=== PATIENT | female | born 1990 | race Hispanic/Latino ===

== ENCOUNTER 2017-03-07 17:51 | Emergency (ER) | payer BC ==
[2017-03-07 17:56] VITALS: BP 134/88; PULSE 79; RESP 13; TEMP 97.8; O2SAT 99
--- NOTE | 2017-03-07 18:49 | ED PDOC ---
HPI: Wound Care - HPI Time Seen by Provider: 03/07/17 17:55 Chief Complaint (Nursing): Upper Extremity Problem/Injury Chief Complaint (Provider): Finger injury History Per: Patient History Of Present Illness: Marisol Rice, a 26 year old female, presents to the ED for injury to her hands. The patient states thats he was climbing a fence and she fell sustaining lacerations to her left thumb, left index finger and right 4th digit. Patient is unsure of tetanus status. Exam Limitations: no limitations Onset/Duration Of Symptoms: Days (x1) Current Symptoms Are (Timing): Still Present Past Medical History Reviewed: Historical Data, Nursing Documentation, Vital Signs Vital Signs: Last Vital Signs Temp 97.8 F 03/07/17 17:52 Pulse 79 03/07/17 17:52 Resp 13 03/07/17 17:52 BP 134/88 03/07/17 17:52 Pulse Ox 99 03/07/17 17:52 - Medical History PMH: No Chronic Diseases - Surgical History Surgical History: No Surg Hx - Family History Family History: States: Unknown Family Hx - Home Medications Home Medications: Ambulatory Orders Medication Instructions Recorded Cephalexin [Keflex] 500 mg PO BID #14 capsule 03/07/17 - Allergies Allergies/Adverse Reactions: Allergies Allergy/AdvReac Type Severity Reaction Status Date / Time No Known Allergies Allergy Verified 03/07/17 17:56 Review of Systems ROS Statement: Except As Marked, All Systems Reviewed And Found Negative Musculoskeletal: Positive for: Other (laceration to left thumg, left index finger and right ring finger.) Physical Exam - Reviewed Nursing Documentation Reviewed: Yes Vital Signs Reviewed: Yes - Physical Exam Appears: Positive for: Non-toxic, No Acute Distress Head Exam: Positive for: ATRAUMATIC, NORMAL INSPECTION, NORMOCEPHALIC Skin: Positive for: Normal Color, Warm, Dry. Negative for: Rash Eye Exam: Positive for: Normal appearance Extremity: Positive for: Normal ROM (normal ROM to b/l hands and fingers), Other (2cm linear laceration on left thumb and left index finger.; 3cm deeper laceration to right 4th digit.). Negative for: Tenderness, Deformity, Swelling Neurologic/Psych: Positive for: Alert, Oriented - ECG O2 Sat by Pulse Oximetry: 99 (RA) Pulse Ox Interpretation: Normal Medical Decision Making Medical Decision Makin Initial Impression 26 y/o female presenting with hand injury Initial Plan: * Adacel 0.5mL IM * Reevaluation Pts wound irrigated with NS, antibiotic ointment and dressing applies. Scribe Attestation Documented by Jadyn aPrsons acting as a scribe for Griselda Kim PA-C. Scribe Attestation All medical record entries made by the Scribe were at my direction and personally dictated by me. I have reviewed the chart and agree that the record accurately reflects my personal performance of the history, physical exam, medical decision making, and the department course for this patient. I have also personally directed, reviewed, and agree with the discharge instructions and disposition. Disposition - Clinical Impression Clinical Impression: Laceration of hand, Tetanus toxoid vaccination administered at current visit - Patient ED Disposition Is Patient to be Admitted: No - Disposition Disposition: Routine/Home Disposition Time: 19:00 Condition: STABLE Prescriptions: Cephalexin [Keflex] 500 mg PO BID #14 capsule Instructions: Laceration Without Closure (ED) Forms: [facility] ([place]) - POA Present On Arrival: None
--- NOTE | 2017-03-08 09:26 | RAD ---
PROCEDURE: Right Hand Radiographs. HISTORY: r/o FB, base of right index COMPARISON: None. FINDINGS: BONES: Examination limited by inclusion of only two views. No acute fracture. JOINTS: Normal. No osteoarthritic changes. SOFT TISSUES: No radiopaque foreign body identified. OTHER FINDINGS: None. IMPRESSION: No evidence of radiopaque foreign body.
== END 2017-03-07 20:27 | disposition home or self-care (01) ==
LOC: H.ER 17:51
DX: S61.012A Laceration without foreign body of left thumb without damage to nail, initial encounter (principal); W26.8XXA Contact with other sharp object(s), not elsewhere classified, initial encounter; Y92.89 Other specified places as the place of occurrence of the external cause